=== PATIENT | female | born 1980 | race Two or more races ===

== ENCOUNTER 2021-06-15 04:35 | Emergency (ER) | payer SELFPAY ==
[~2021-06-15] VITALS: Ht 152.4 cm; Wt 104.6 kg
--- NOTE | 2021-06-15 04:45 | PHYS DOC ---
General Adult EDM: Chief Complaint: NOSEBLEED HPI: HPI: Patient is a 41 year old female who presents this morning with history of nosebleed. She dates that she woke up this morning with a nosebleed. There is no active bleeding at present. She denies any facial or nasal trauma. She denies any sneezing, congestion, sore throat. She is not taking any anticoagulant medication. She denies fevers or chills, cough, dyspnea, dizzi ness, headache. She denies nausea or vomiting symptoms. No bleeding from any other sources or sites. No easy bruising. She had never had a nosebleed before, she became scared because she saw the amount of blood on her nose and her bedding when she woke up. Also, she has known hypertension, has been willfully noncompliant not taking medications for some time, perhaps years. She believes that she was previously prescribed hydrochlorothiazide. She has not seen a primary care physician in quite some time. He did not even have to apply pressure to stop the bleeding before arrival. Review of Systems: Review of Systems: Constitutional: Denies fever or chills. [] HENT: Mild nasal congestion mild and currently resolved epistaxis. Denies sore throat. Denies facial trauma, facial pain Respiratory: Denies cough or shortness of breath. [] Cardiovascular: Denies chest pain or edema. [] GI: Denies abdominal pain, nausea, vomiting Musculoskeletal: Denies back pain or joint pain. [] Integument: Denies rash. [] Neurologic: Denies headache, focal weakness or sensory changes. Denies dizziness. Psychiatric: Anxiety as it pertains to current clinical condition this morning. Heart Score: C/O Chest Pain: No Risk Factors: Risk Factors: DM, Current or recent (<one month) smoker, HTN, HLP, family history of CAD, obesity. Risk Scores: Score 0 - 3: 2.5% MACE over next 6 weeks - Discharge Home Score 4 - 6: 20.3% MACE over next 6 weeks - Admit for Clinical Observation Score 7 - 10: 72.7% MACE over next 6 weeks - Early Invasive Strategies Physical Exam: PE: Constitutional: Well developed, well nourished, no acute distress, non-toxic appearance. [] HENT: Normocephalic, atraumatic, oropharynx is patent and clear. No clots or blood in oropharynx or mouth. Mucous membranes are moist. TMs are clear bilaterally. Nares are patent, very scant, dried blood in bilateral nares. No fresh clots or active bleeding. Septum is midline. No foreign body is noted. There is no evidence of facial swelling, facial trauma, or contusions. Eyes: Conjunctiva cy, no pallor, no discharge. [] Neck: Normal range of motion, no tenderness, supple, no stridor. Trachea midline Cardiovascular:Heart rate regular rhythm, +2 radial pulses bilaterally, no cyanosis, warm and well-perfused Lungs & Thorax: Bilateral breath sounds clear to auscultation, no rales, rhonchi or wheezes Skin: Warm, dry, no erythema, no rash. No pallor. No open wounds or lacerations. No jaundice. Extremities: Limb deformity, no evidence of peripheral edema Neurologic: She is awake, alert, oriented x3, no facial asymmetry, gait is steady, nonantalgic, no ataxia, gross motor function is normal, speech is clear and fluent Psychologic: She is slightly anxious but cooperative and pleasant EKG: EKG: [] Radiology/Procedures: Radiology/Procedures: [] Course & Med Decision Making: Course & Med Decision Making The patient's epistaxis is resolved, and has found like it was resolved prior to her leaving her home. There is no indication for further intervention, invasive exams, laboratory exams at this time. She is relatively hypertensive, though asymptomatic with this. I told her I would prescribe 30 days of her hydrochlorothiazide for her, she is given outpatient resources to establish primary care. I stressed the importance of compliance and follow-up. I discussed dietary instructions regarding [employer] diet. I gave her some very specific and detailed instructions regarding home care for epistaxis. She verbalizes understanding. She is discharged in stable condition. Tony Disclaimer: Tony Disclaimer: This electronic medical record was generated, in whole or in part, using a voice recognition dictation system. Departure Departure Impression: Primary Impression: History of epistaxis Additional Impression: Chronic hypertension Disposition: HOME / SELF CARE / HOMELESS Condition: STABLE Patient Instructions: Hypertension, Nosebleed, [id number] Additional Instructions: If your nosebleed returns, you need to apply firm and steady pressure with your fingers. You may also use [id number] Afrin spray, you may soak some cotton balls with this aspirin, but gently placed them in your nostrils, but did not place him too far in your nose, and this will help stop some of the bleeding. Return to the ER for chest pain, shortness of breath, severe dizziness, if you are acutely injured or sustained any trauma, if you are unable to stop any bleeding or for any other concerns. Please follow-up with the resources you are given to establish care with a primary care doctor. Eat a low-sodium diet, try to eat a heart healthy diet, this will help with your blood pressure. Take the blood pressure medicine as directed. Scripts Hydrochlorothiazide (HYDROCHLOROTHIAZIDE TABLET ) 25 Mg Tablet 25 MG PO DAILY for DIURETIC, #30 TAB 0 Refills Prov: CAMILLE SPEARS DO 06/15/21 CAMILLE SPAERS DO Jun 15, 2021 04:45
[2021-06-15 04:47] VITALS: BP 180/115
[2021-06-15] MEDS ORDERED: HYDR-2145 PO (04:54)
== END 2021-06-15 05:04 | disposition home or self-care (01) ==
LOC: ER 04:35
DX: R04.0 Epistaxis (principal); I10 Essential (primary) hypertension
CPT/HCPCS: 99283